=== PATIENT | female | born 1955 | race Two or more races ===

== ENCOUNTER 2018-08-26 21:47 | Emergency (ER) | payer MEDICAID ==
[~2018-08-26] VITALS: Ht 154.9 cm; Wt 78.9 kg
[2018-08-26 22:00] VITALS: BP 108/69
== END 2018-08-27 04:50 | disposition left against medical advice (07) ==
LOC: ER 21:49
DX: M79.645 Pain in left finger(s) (principal); Z53.21 Procedure and treatment not carried out due to patient leaving prior to being seen by health care provider
CPT/HCPCS: 73140

== ENCOUNTER 2019-10-27 11:25 | Emergency (ER) | payer MEDICAID ==
[~2019-10-27] VITALS: Ht 152.4 cm; Wt 77.1 kg
[2019-10-27] MEDS ORDERED: SODIUM CHLORIDE 0.9% 1,000 ML IV ONE ×2 (13:46)
[2019-10-27 13:52] LABS: Basophils # (auto) 0 10 ^3/uL (0-0.2); Basophils % (auto) 0.2 % (0.0-2.0); Eosinophils # (auto) 0 10 ^3/uL (0-0.8); Hematocrit 46.7 % (36.0-46.0); Hemoglobin 15.4 g/dL (12.2-16.2); Lymphocytes # (auto) 0.7 10 ^3/uL (0.4-5.4); Mean Corpuscular Hemoglobin 31.6 pg (28.0-32.0); Mean Corpuscular Volume 95.6 fL (80.0-100.0); Monocytes # (auto) 0.4 10 ^3/uL (0-1.3); Monocytes % (auto) 6.1 % (0.0-12.0); Neutrophils % (auto) 83.7 % (37.0-80.0); Platelet Count (auto) 242 10^3/uL (140-450); Red Blood Cells 4.88 10^6/uL (4.0-5.20); White Blood Cell 7.2 10^3/uL (4.4-10.8)
[2019-10-27 14:08] LABS: Chloride 95 mmol/L (98-107); Potassium 3.5 mmol/L (3.5-5.1); Sodium 130 mmol/L (136-145)
[2019-10-27 14:20] LABS: Alanine Aminotransferase 26 U/L (13-56); Albumin 2.9 g/dL (3.4-5.0); Alkaline Phosphatase 86 U/L (45-117); Anion Gap 13 (5-15); Aspartate Aminotransferase 27 U/L (15-37); BUN/Creatinine Ratio 15.1; Bilirubin, Total 0.5 mg/dL (0.2-1.0); Blood Urea Nitrogen 11 mg/dL (7-18); Calcium 9.1 mg/dL (8.5-10.1); Carbon Dioxide 22 mmol/L (21-32); GFR African American 104 mL/min; GFR Non-African American 86 mL/min; Glucose 270 mg/dL (74-106); Total Protein 8.6 g/dL (6.4-8.2)
[2019-10-27 16:42] VITALS: BP 109/63
== END 2019-10-27 16:45 | disposition home or self-care (01) ==
LOC: ER 11:25
DX: E11.65 Type 2 diabetes mellitus with hyperglycemia (principal); E86.0 Dehydration; E87.1 Hypo-osmolality and hyponatremia; E44.0 Moderate protein-calorie malnutrition
CPT/HCPCS: 36415; 71045; 80053; 82962; 84484; 85025; 93005; 96360; 96361; 99285; J7030